=== PATIENT | female | born 2000 | race Two or more races ===

== ENCOUNTER 2023-09-07 20:36 | Emergency (ER) | payer SELFPAY ==
[2023-09-07 21:35] LABS: CORONAVIRUS COVID-19 NAA NEGATIVE (NEGATIVE); INFLUENZA A NAA NEGATIVE (NEGATIVE); INFLUENZA B NAA NEGATIVE (NEGATIVE); RESPIRATORY SYNCYTIAL VIR NAA NEGATIVE (NEGATIVE)
== END 2023-09-07 22:00 | disposition home or self-care (01) ==
LOC: MW.ED 20:36
DX: J06.9 Acute upper respiratory infection, unspecified (principal); B97.89 Other viral agents as the cause of diseases classified elsewhere; R05.9 Cough, unspecified; Z20.822 Contact with and (suspected) exposure to COVID-19
CPT/HCPCS: 0241U; 87651; 99283

== ENCOUNTER 2024-09-18 17:53 | Emergency (ER) | payer SELFPAY ==
[2024-09-18] MEDS: Ketorolac 30 MG/ML SDV IVPUSH ONE (20:09)
[2024-09-18] MEDS: Sodium Chloride 0.9% 1,000 ML IV ONE (20:09)
[2024-09-18] MEDS: Metoclopramide 5 MG Tab PO ONE (20:10)
[2024-09-18] MEDS: diphenhydrAMINE 50 MG/ML SDV IVPUSH ONE (20:10)
[2024-09-18] MEDS: Ondansetron 4 MG/2 ML SDV IVPUSH ONE (20:10)
[2024-09-18 20:22] LABS: BASOPHILS ABSOLUTE AUTO 0.04 K/uL (0.00-0.20); BASOPHILS PERCENT AUTO 0.4 % (0.0-1.0); EOSINOPHILS ABSOLUTE AUTO 0.07 K/uL (0.00-0.45); EOSINOPHILS PERCENT AUTO 0.6 % (0.0-6.0); HEMATOCRIT 39.5 % (37.0-47.0); HEMOGLOBIN 13.4 g/dL (12.0-16.0); IMMATURE GRAN ABSOLUTE AUTO 0.02 K/uL (0.00-0.05); IMMATURE GRAN PERCENT AUTO 0.2 % (0.0-0.4); LYMPHOCYTES ABSOLUTE AUTO 1.61 K/uL (1.00-4.80); LYMPHOCYTES PERCENT AUTO 14.5 % (24.0-44.0); MEAN CORPUSCULAR HEMOGLOBIN 26.9 pg (28.0-32.0); MEAN CORPUSCULAR HGB CONC 33.9 g/dL (32.0-36.0); MEAN CORPUSCULAR VOLUME 79.2 fL (83.0-99.0); MEAN PLATELET VOLUME 10.8 fL (9.4-12.3); MONOCYTES ABSOLUTE AUTO 0.35 K/uL (0.00-0.80); MONOCYTES PERCENT AUTO 3.1 % (0.0-8.0); NEUTROPHILS ABSOLUTE AUTO 9.03 K/uL (1.80-7.70); NEUTROPHILS PERCENT AUTO 81.2 % (41.0-71.0); PLATELET COUNT,PLT 335 K/uL (150-400); RED BLOOD CELL COUNT 4.99 M/uL (4.10-5.30); WHITE BLOOD CELL COUNT,WBC 11.12 K/uL (3.9-11.3)
[2024-09-18 21:01] LABS: BILIRUBIN TOTAL 0.5 mg/dL (0.2-1.0); CALCIUM 9.3 mg/dL (8.5-10.1); CARBON DIOXIDE,CO2 24.3 mmol/L (21.0-32.0); CREATININE 0.6 mg/dL (0.6-1.0); EST CRCL DRUG DOSING (CG) 102.95 mL/min; PROTEIN TOTAL,TP 7.9 g/dL (6.4-8.2)
[2024-09-18] MEDS: Amoxicillin/Clavulanate K 875-125 MG Tab PO ONE (21:29)
== END 2024-09-18 21:33 | disposition home or self-care (01) ==
LOC: MW.ED 17:53
DX: G43.909 Migraine, unspecified, not intractable, without status migrainosus (principal); J32.9 Chronic sinusitis, unspecified; Z79.899 Other long term (current) drug therapy; Z75.8 Other problems related to medical facilities and other health care
CPT/HCPCS: 36415; 80053; 83690; 85025; 87428-QW; 96361; 96374; 96375; 99284-25; A9270-GY; J1200; J1885; J2405; J7030